=== PATIENT | male | born 1960 | race Caucasian/White ===

== ENCOUNTER 2019-05-20 14:29 | Inpatient (IN) | payer OTHER ==
[~2019-05-20] VITALS: Ht 170.1 cm; Wt 86.8 kg
[2019-05-20] VITALS (8 sets, daily range): BP systolic 105–129; BP diastolic 64–96
--- NOTE | ~2019-05-20 | EKG ---
[place], [place] ELECTROCARDIOGRAM REPORT NAME: RUDI CRUZ UNIT #: [id number] ROOM: 525 DOCTOR: GILDA DRAFT REPORT BIRTHDATE: [birth year] [facility] Test Date: 2019-05-20 Test Time: 15:46:37 Pat Name: RUDI CRUZ Department: Room: [facility] Gender: M Scada Engineer: : [id number] Requested By: MARGY POE PA-C Order Number: [id number] Reading MD: Damaris Mcrae MD Measurements Intervals [place] Rate: 139 P: [place]: QRS: 124 QRSD: 125 T: -20 QT: 374 QTc: 569 Interpretive Statements Atrial fibrillation Right bundle branch block Probable posterior infarct, acute Anterolateral infarct, age indeterminate Baseline wander in lead(s) V2 Electronically Signed On 05-21-2019 8:15:23 PDT by Damaris Mcrae MD CM:EKGRPT:ELECTROCARDIOGRAM REPORT [id number] MARGY POE PA-C EPIPHANY DRAFT REPORT MARGY POE PA-C
[~2019-05-20 14:29] MED LIST: ASPIRIN325 MG PO; BRIN10TA PO; CLONAZEPAM1 MG PO; COGENTIN0.5 MG PO; CRESTOR20 MG PO; DEPAKOTE500 MG PO; DRISDOL50000 IU PO; INVEGA6 MG PO; ISOSORBIDE30 MG PO; K-Dur 20MEQ20 MEQ PO; LASIX20 MG PO; LATU120T PO; LOPRESSOR100 MG PO; LYRICA150 MG PO; PLAVIX75 MG PO; RANITIDINE HCL150 M1 PO; VITAMIN D31000 IU PO; ZESTRIL2.5 MG PO; ZOLOFT100 MG PO
[2019-05-20 15:36] LABS: BASO # 0.1 10*3/uL (0.0-0.1); BASO % 0.8 % (0.0-1.0); EOS # 0.3 10*3/uL (0.0-0.4); EOS % 3.9 % (1.0-4.0); HEMATOCRIT 42.5 % (42.0-52.0); HEMOGLOBIN 13.7 g/dl (14.0-18.0); LYMPH # 1.7 10*3/uL (1.3-4.4); LYMPH % 20.3 % (27.0-41.0); MEAN CELL VOLUME 97.3 fl (80.0-94.0); MEAN CORPUSCULAR HGB 31.4 pg (27.0-31.0); MEAN CORPUSCULAR HGB CONC 32.2 g/dl (33.0-37.0); MEAN PLATELET VOLUME 11.7 fl (9.6-12.3); MONO # 0.8 10*3/uL (0.1-1.0); MONO % 8.8 % (3.0-9.0); NEUT # 5.6 10*3/uL (2.3-7.9); NEUT % 65.7 % (47.0-73.0); PLATELET COUNT AUTOMATED 125 10*3/uL (130-400); RED BLOOD COUNT 4.37 10*6/uL (4.50-5.90); RED CELL DISTRI WIDTH 15.3 % (0-14.5); WHITE BLOOD COUNT 8.5 10*3/uL (4.8-10.8)
[2019-05-20 15:54] LABS: ALBUMIN 2.9 gm/dl (3.1-4.5); ALKALINE PHOSPHATASE 155 U/L (45-117); BUN 7 mg/dl (7-24); CHLORIDE 114 mmol/L (98-107); LIPASE 56 U/L (73-393); POTASSIUM 3.9 mmol/L (3.5-5.1); SGOT/AST 19 IU/L (3-35); SGPT/ALT 18 U/L (12-78); SODIUM 143 mmol/L (136-145); TOTAL PROTEIN 6.7 gm/dL (6.4-8.2)
[2019-05-20 15:58] LABS: INTERNATIONAL NORM RATIO 1.1 (2.0-3.5)
[2019-05-20 16:02] LABS: ETHYL ALCOHOL < 3.0 mg/dl (<3); TROPONIN I 0.056 ng/ml (<0.045)
[2019-05-21] VITALS: BP 118/99
[2019-05-21 06:35] LABS: ALBUMIN 2.7 gm/dl (3.1-4.5); CHLORIDE 113 mmol/L (98-107); POTASSIUM 3.8 mmol/L (3.5-5.1); SODIUM 143 mmol/L (136-145)
[2019-05-21 06:46] LABS: ALKALINE PHOSPHATASE 142 U/L (45-117); BUN 7 mg/dl (7-24); CHOLESTEROL 106 mg/dL (<200); CREATININE 1.03 mg/dL (0.70-1.30); HDL CHOLESTEROL 34 mg/dl (40-60); LDL CHOLESTEROL 59 mg/dL (9-159); PHOSPHOROUS 2.3 mg/dL (2.5-4.9); SGOT/AST 22 IU/L (3-35); SGPT/ALT 18 U/L (12-78); TOTAL PROTEIN 6.1 gm/dL (6.4-8.2); TRIGLYCERIDES 63 mg/dl (<150); VLDL CHOLESTEROL 13 mg/dL (6-40)
[2019-05-21 07:01] LABS: BASO # 0.1 10*3/uL (0.0-0.1); BASO % 0.8 % (0.0-1.0); EOS # 0.3 10*3/uL (0.0-0.4); EOS % 4.5 % (1.0-4.0); HEMATOCRIT 42.3 % (42.0-52.0); LYMPH % 28.3 % (27.0-41.0); MEAN CORPUSCULAR HGB 30.9 pg (27.0-31.0); MEAN CORPUSCULAR HGB CONC 30.7 g/dl (33.0-37.0); MONO # 0.7 10*3/uL (0.1-1.0); MONO % 9.5 % (3.0-9.0); NEUT % 56.5 % (47.0-73.0); PLATELET COUNT AUTOMATED 114 10*3/uL (130-400); RED BLOOD COUNT 4.21 10*6/uL (4.50-5.90); RED CELL DISTRI WIDTH 15.5 % (0-14.5); WHITE BLOOD COUNT 7.1 10*3/uL (4.8-10.8)
[2019-05-21 07:06] LABS: MEAN CELL VOLUME 100.5 fl (80.0-94.0)
[2019-05-21 08:00] VITALS: BP 122/92
[2019-05-21 08:31] LABS: VITAMIN D, 25-HYDROXY 20.8 ng/mL (30-100)
[2019-05-21 12:00] VITALS: BP 109/73
[2019-05-21 16:00] VITALS: BP 109/82
[2019-05-21 20:00] VITALS: BP 90/56
[2019-05-21 21:56] VITALS: BP 92/58
[2019-05-22] VITALS: BP 100/82
[2019-05-22] MEDS ORDERED: METOPROLOL SUCC50 M1 PO (12:52)
[2019-05-22] MEDS ORDERED: XARE20MG PO (12:52)
== END 2019-05-22 11:22 | disposition left against medical advice (07) | DRG 309 ==
LOC: ED 14:29 → 5E 18:48 → EDHOLD 18:48 → 5E 20:25
PROVIDERS: Internal Medicine; Physician Assistant; ADMIT Internal Medicine
DX: I48.91 Unspecified atrial fibrillation (principal); D68.59 Other primary thrombophilia; E44.0 Moderate protein-calorie malnutrition; I10 Essential (primary) hypertension; I25.10 Atherosclerotic heart disease of native coronary artery without angina pectoris; E87.8 Other disorders of electrolyte and fluid balance, not elsewhere classified; Z96.649 Presence of unspecified artificial hip joint; F17.210 Nicotine dependence, cigarettes, uncomplicated; Z53.21 Procedure and treatment not carried out due to patient leaving prior to being seen by health care provider; R79.89 Other specified abnormal findings of blood chemistry; F03.90 Unspecified dementia, unspecified severity, without behavioral disturbance, psychotic disturbance, mood disturbance, and anxiety; F41.9 Anxiety disorder, unspecified; F32.9 Major depressive disorder, single episode, unspecified; Z95.1 Presence of aortocoronary bypass graft; Z88.8 Allergy status to other drugs, medicaments and biological substances; I25.2 Old myocardial infarction; Z86.73 Personal history of transient ischemic attack (TIA), and cerebral infarction without residual deficits; Z82.49 Family history of ischemic heart disease and other diseases of the circulatory system; Z79.82 Long term (current) use of aspirin; Z79.899 Other long term (current) drug therapy; Z79.02 Long term (current) use of antithrombotics/antiplatelets; Z68.30 Body mass index [BMI] 30.0-30.9, adult

== ENCOUNTER 2019-10-26 15:13 | Inpatient (IN) | payer OTHER, MEDICARE ==
[~2019-10-26] VITALS: Ht 172.7 cm; Wt 93.5 kg
[2019-10-26] VITALS (9 sets, daily range): BP systolic 109–134; BP diastolic 78–95
[~2019-10-26 15:13] MED LIST changes: +METOPROLOL SUCC50 M1 PO; +XARE20MG PO
--- NOTE | 2019-10-26 16:00 | NUR ---
PT C/O NAUSEA, STATES TO ME HE HAS NOT BEEN ABLT TO EAT THE PAST COUPLE OF DAYS DUE TO NAUSEA. DR COSTA NOTIFIED.
[2019-10-26 16:01] LABS: BASO # 0.1 10*3/uL (0.0-0.1); BASO % 0.9 % (0.0-1.0); EOS # 0.3 10*3/uL (0.0-0.4); EOS % 3.5 % (1.0-4.0); HEMATOCRIT 43.8 % (42.0-52.0); HEMOGLOBIN 13.5 g/dl (14.0-18.0); LYMPH # 1.3 10*3/uL (1.3-4.4); LYMPH % 16.2 % (27.0-41.0); MEAN CELL VOLUME 103.1 fl (80.0-94.0); MEAN CORPUSCULAR HGB 31.8 pg (27.0-31.0); MEAN CORPUSCULAR HGB CONC 30.8 g/dl (33.0-37.0); MEAN PLATELET VOLUME 11.3 fl (9.6-12.3); MONO % 12.6 % (3.0-9.0); NEUT # 5.1 10*3/uL (2.3-7.9); NEUT % 66.4 % (47.0-73.0); PLATELET COUNT AUTOMATED 118 10*3/uL (130-400); RED BLOOD COUNT 4.25 10*6/uL (4.50-5.90); RED CELL DISTRI WIDTH 15.9 % (0-14.5); WHITE BLOOD COUNT 7.7 10*3/uL (4.8-10.8)
[2019-10-26 16:10] LABS: ACT PARTIAL THROMBO TIME 29.5 SECONDS (20.0-32.1); INTERNATIONAL NORM RATIO 1.1 (2.0-3.5)
--- NOTE | 2019-10-26 16:11 | NUR ---
PT REMAINS IN A-FIB RVR, CARDIZEM GTT INCREASED TO 10MG.
[2019-10-26 16:17] LABS: ALBUMIN 3.1 gm/dl (3.1-4.5); ALKALINE PHOSPHATASE 120 U/L (45-117); BUN 12 mg/dl (7-24); CHLORIDE 112 mmol/L (98-107); POTASSIUM 4.3 mmol/L (3.5-5.1); SGOT/AST 21 IU/L (3-35); SGPT/ALT 18 U/L (12-78); SODIUM 143 mmol/L (136-145); TOTAL PROTEIN 7.1 gm/dL (6.4-8.2)
[2019-10-26 16:24] LABS: TROPONIN I 0.076 ng/ml (<0.045)
--- NOTE | 2019-10-26 16:24 | NUR ---
INFORMED CRITICAL TROPONIN 0.078
--- NOTE | 2019-10-26 18:13 | NUR ---
A 58, admitted to , under the services of MINNIE Farley DO with a diagnosis of PULMONARY VASCULAR CONGESTION ATRIAL FIBRILATION. Chief complaint is CHEST PAIN. Patient arrived via from ER Monitor applied. Initial assessment completed. Vital signs taken and recorded. MINNIE FARLEY DO notified of admission to the unit. Orders received. See assessment for past medical history, medications and allergies. Patient and/or family oriented to unit. [facility] reviewed. Clothing/patient valuable form completed. FISH JAMA
--- NOTE | 2019-10-26 19:00 | NUR ---
ADVISED DR. ZIMMER OF PATIENTS ELEVATED TROPONIN OF 0.08
--- NOTE | 2019-10-26 19:10 | NUR ---
PT RESTING IN BED. DENIES ANY COMPLAINTS OR CHEST PAIN AT THIS TIME. CARDIZEM DRIP RUNNING. ASSESSMENT COMPLETE. RESPIRATIONS EASY AND REGULAR. VSS. CALL LIGHT WITHIN REACH. WILL CONTINUE TO MONITOR.
--- NOTE | 2019-10-26 19:48 | NUR ---
CALL PLACED TO DR.L SORTO ADVISED OF CONSULT, REVIEWED CURRENT MEDICATIONS, INCLUDING PATIENTS DONTE PETTY, HE VERSED HE WILL SEE HIM IN AM. ALSO CALLED DR. CORBETT, SPOKE WITH ANSWERING SERVICES ADVISED OF CONSULT, REQUESTED CALL BACK.
[2019-10-26] MEDS ORDERED: ELIQUIS5 M1 PO (20:00)
[2019-10-26] MEDS ORDERED: VITAMIN D33000 UNIT PO (20:04)
[2019-10-26] MEDS ORDERED: Depakote500 MG PO (20:05)
[2019-10-26] MEDS ORDERED: LOPRESSOR50 M1 PO (20:06)
[2019-10-26] MEDS ORDERED: MIRTAZAPINE15 M2 PO (20:07)
[2019-10-26] MEDS ORDERED: NITROGLYCERIN0.4 MG SL (20:09)
[2019-10-26] MEDS ORDERED: LYRICA150 M1 PO (20:10)
[2019-10-26] MEDS ORDERED: CRESTOR40 M1 PO (20:11)
[2019-10-26] MEDS ORDERED: SERTRALINE HYD100 MG PO (20:12)
[2019-10-26] MEDS ORDERED: TRAZODONE100 MG PO (20:14)
--- NOTE | 2019-10-26 20:16 | NUR ---
ADVISED DR. ZIMMER THAT MED REC WAS COMPLETED AND THAT PATIENT IS SMOKE AND WANTS PATCH, ALSO =THAT PATIENT REQUESTED A XANAX FOR HIS ANXIETY.
--- NOTE | 2019-10-26 21:39 | NUR ---
NOTIFIED OF CRITICAL TROPONIN OF 0.081 AND PATIENT WANTING A NICOTINE PATCH.
--- NOTE | 2019-10-26 21:51 | NUR ---
CARDIOLOGY CALLED FOR TROP OF 0.081 PER . PER TANGELA DOE IN AM.
[2019-10-27] VITALS: BP 106/80
--- NOTE | 2019-10-27 00:45 | NUR ---
DONTE PETTY STOOPED AT 0045.
[2019-10-27 08:00] VITALS: BP 112/68
[2019-10-27 08:02] LABS: BASO # 0.1 10*3/uL (0.0-0.1); BASO % 1.1 % (0.0-1.0); EOS # 0.3 10*3/uL (0.0-0.4); EOS % 3.1 % (1.0-4.0); HEMOGLOBIN 14.3 g/dl (14.0-18.0); LYMPH # 1.9 10*3/uL (1.3-4.4); LYMPH % 22.3 % (27.0-41.0); MEAN CELL VOLUME 100.9 fl (80.0-94.0); MEAN CORPUSCULAR HGB 31.4 pg (27.0-31.0); MEAN CORPUSCULAR HGB CONC 31.1 g/dl (33.0-37.0); MEAN PLATELET VOLUME 11.6 fl (9.6-12.3); MONO # 1.1 10*3/uL (0.1-1.0); MONO % 13.4 % (3.0-9.0); NEUT % 59.9 % (47.0-73.0); PLATELET COUNT AUTOMATED 135 10*3/uL (130-400); RED BLOOD COUNT 4.56 10*6/uL (4.50-5.90); RED CELL DISTRI WIDTH 15.9 % (0-14.5); WHITE BLOOD COUNT 8.3 10*3/uL (4.8-10.8)
[2019-10-27 08:24] LABS: ALBUMIN 3.3 gm/dl (3.1-4.5); BUN 10 mg/dl (7-24); CHLORIDE 107 mmol/L (98-107); CHOLESTEROL 126 mg/dL (<200); CREATININE 1.29 mg/dL (0.70-1.30); HDL CHOLESTEROL 38 mg/dl (40-60); LDL CHOLESTEROL 73 mg/dL (9-159); PHOSPHOROUS 3.4 mg/dL (2.5-4.9); POTASSIUM 4.2 mmol/L (3.5-5.1); SGOT/AST 18 IU/L (3-35); SGPT/ALT 18 U/L (12-78); SODIUM 139 mmol/L (136-145); TOTAL PROTEIN 7.5 gm/dL (6.4-8.2); TRIGLYCERIDES 77 mg/dl (<150); VLDL CHOLESTEROL 15 mg/dL (6-40)
[2019-10-27 08:30] LABS: ALKALINE PHOSPHATASE 128 U/L (45-117)
[2019-10-27 08:40] LABS: VITAMIN D, 25-HYDROXY 13.9 ng/mL (30-100)
--- NOTE | 2019-10-27 09:00 | NUR ---
Garment Tag Stringer in to talk to patient. Patient states lives at home with alone. There are 2 steps in the home. Physician: sony haile [facility]: [facility] Home health services: none Patient's level of ADLs: INDEPENDENT Patient has working utilities: all working DME: none Follow-up physician's appointment after d/c: will be made by hospitalist nurse director upon discharge Does patient want to access PORTAL?: no Discharge plan discusse with patient, he lives at home alone, he states he is independent in adls and ambulation, drives, he states he will return home when medically stable and denies any home needs, case management will follow. ZOEY ERVIN
--- NOTE | 2019-10-27 10:12 | NUR ---
SPOKE WITH DR PARIS REGARDING ELIQUIS BEING HELD AND HE STATED HE WOULD SPEAK WITH DR SEGAL.
[2019-10-27 12:00] VITALS: BP 131/88
[2019-10-27 16:00] VITALS: BP 119/86
--- NOTE | 2019-10-27 17:53 | NUR ---
NOTIFIED DR CORLEY THAT PT HAD RAISED WELTS UNDERNEATH HIS ELECTODES TO HIS HEART MONITOR AND IS STATING HE CANT WEAR IT ANYMORE.ASSISTANT PROFESSOR OF ART AT BEDSIDE. DR CORLEY STATED HE WOULD PUT ORDERS IN.
--- NOTE | 2019-10-27 19:10 | NUR ---
PT RESTING IN BED. PT STATES HE IS FEELING A LOT BETTER AND THE BUILDING SUPERINTENDENT CAME IN AND TALKED WITH HIM THIS MORNING AND ANSWERED ALL OF HIS QUESTIONS. EXPLAINED TO PT HE WILL BE NPO AFTER MIDNIGHT FOR STRESS TEST IN AM. PT ALSO STATES HE TOOK OFF HIS HEART MONITOR AND CANNOT WEAR IT BECAUSE HE HAS RED WELTS. HE STATES THIS HAPPENS EVERY TIME HE HAS TO WEAR ONE. ASSESSMENT COMPLETE. RESPIRATIONS EASY AND REGULAR. VSS. CALL LIGHT WITHIN REACH. WILL CONTINUE TO MONITOR.
[2019-10-27 20:00] VITALS: BP 109/66
--- NOTE | 2019-10-27 20:58 | NUR ---
NOTIFIED PT HAS HIS MONITOR OFF AND IS SAYING HE CAN'T WEAR IT BECAUSE HE HAS RED WELTS WHERE THE ELECTRODES WERE. PT STATES THIS HAPPENS EVERY TIME HE HAS TO WEAR A MONITOR. NOTIFIED THERE IS NO ORDER IN FOR THE MONITOR TO BE OFF. SHE STATES SHE WILL PUT ONE IN FOR IT TO BE OFF FOR NOW AND TO CHECK HIS PULSE MORE FREQUENTLY AND NOTIFY HER OF ANYTHING ABNORMAL.
[2019-10-28] VITALS: BP 97/72
[2019-10-28 00:30] VITALS: BP 110/70
--- NOTE | 2019-10-28 04:05 | NUR ---
24 HR chart check completed.
[2019-10-28 05:59] LABS: BUN 16 mg/dl (7-24); CHLORIDE 105 mmol/L (98-107); CREATININE 1.33 mg/dL (0.70-1.30); POTASSIUM 4.1 mmol/L (3.5-5.1); SODIUM 138 mmol/L (136-145)
--- NOTE | 2019-10-28 06:30 | NUR ---
PTS HR HAS STAYED IN THE 80'S-90'S.
[2019-10-28 08:00] VITALS: BP 104/68
--- NOTE | 2019-10-28 09:00 | NUR ---
case management visits with patient, he will return home when medically stable and denies any home needs, case management will follow
--- NOTE | 2019-10-28 09:15 | NUR ---
INFORMED SIGNED CONSENT OBTAINED FOR LEXISCAN STRESS TEST WITH DR SEGAL. RESTING EKG AFB RBBB HR 79 BP 110/84. PULSE OX 95% LUNGS CLEARLY. PT COMPLETED ONE MINUTE OF A LEXISCAN PROTOCOL WITH PT RECEIVING LEXISCAN 0.4MG IV OVER 10 SECONDS. NO ARRHYTHMIAS NOTED NO ST CHANGES SEEN. PT C/O SOB WITH INJECTION. LAST RECOVERY HR OF 85 BP 126/68. PT IN STABLE CONDITION, AWAITING NUCLEAR IMAGES.
[2019-10-28 12:00] VITALS: BP 100/66
[2019-10-28] MEDS ORDERED: CARDIZEM CD120 M2 PO (14:47)
[2019-10-28] MEDS ORDERED: LASIX40 MG PO (14:47)
--- NOTE | 2019-10-28 17:26 | NUR ---
Discharge instructions reviewed with patient/family. Patient receptive and verbalizes understanding. Follow-up care arranged. Written instructions given to patient/family. MARYANA CUNNINGHAM
== END 2019-10-28 17:48 | disposition home or self-care (01) | DRG 291 ==
LOC: ED 15:13 → EDHOLD 17:20 → 4E 17:20
PROVIDERS: Emergency Medicine; Internal Medicine; ADMIT Internal Medicine
PROC: 4A02XM4 Measurement of Cardiac Total Activity, External Approach (ICD-10-PCS; principal; 2019-10-28)
PROC: 3E073KZ Introduction of Other Diagnostic Substance into Coronary Artery, Percutaneous Approach (ICD-10-PCS; principal; 2019-10-28)
DX: I13.0 Hypertensive heart and chronic kidney disease with heart failure and stage 1 through stage 4 chronic kidney disease, or unspecified chronic kidney disease (principal); N17.0 Acute kidney failure with tubular necrosis; I50.43 Acute on chronic combined systolic (congestive) and diastolic (congestive) heart failure; E44.0 Moderate protein-calorie malnutrition; D68.59 Other primary thrombophilia; I48.19 Other persistent atrial fibrillation; I25.700 Atherosclerosis of coronary artery bypass graft(s), unspecified, with unstable angina pectoris; R09.89 Other specified symptoms and signs involving the circulatory and respiratory systems; D53.1 Other megaloblastic anemias, not elsewhere classified; D47.3 Essential (hemorrhagic) thrombocythemia; E80.6 Other disorders of bilirubin metabolism; F41.9 Anxiety disorder, unspecified; F32.9 Major depressive disorder, single episode, unspecified; E87.8 Other disorders of electrolyte and fluid balance, not elsewhere classified; I73.9 Peripheral vascular disease, unspecified; F17.210 Nicotine dependence, cigarettes, uncomplicated; E78.5 Hyperlipidemia, unspecified; N18.9 Chronic kidney disease, unspecified; I07.1 Rheumatic tricuspid insufficiency; Z96.649 Presence of unspecified artificial hip joint; Z68.31 Body mass index [BMI] 31.0-31.9, adult; Z95.5 Presence of coronary angioplasty implant and graft; Z83.3 Family history of diabetes mellitus; Z79.82 Long term (current) use of aspirin; Z79.899 Other long term (current) drug therapy; Z86.73 Personal history of transient ischemic attack (TIA), and cerebral infarction without residual deficits; Z82.49 Family history of ischemic heart disease and other diseases of the circulatory system; Z79.01 Long term (current) use of anticoagulants